=== PATIENT | female | born 1975 | race American Indian/Alaskan Native ===

== ENCOUNTER 2017-01-18 11:17 | Emergency (ER) | payer MEDICAID ==
[2017-01-18] MEDS ORDERED: Albuterol-Ipratrop 3 mg / 0.5 (3 ml) UD ONE ×2 (11:47→13:03)
[2017-01-18] MEDS ORDERED: Albuterol-Ipratrop 3 mg / 0.5 (3 ml) UD INH STA (11:48)
[2017-01-18] MEDS ORDERED: Sodium Chloride 0.9% 500 ML IV ONE ×2 (12:49→13:03)
[2017-01-18 13:07] LABS: BASO # 0.1 K/uL (0.0-0.2); BASO % 0.4 % (0.0-2.0); EOS % 0.1 % (0.0-4.0); HEMATOCRIT 42.8 % (34.0-47.0); LYMPH # 0.8 K/uL (1.0-4.3); LYMPH % 6.1 % (20.0-40.0); MEAN CELL VOLUME 92.6 fL (81.0-99.0); MEAN CORPUSCULAR HEMOGLOBIN 31.2 pg (27.0-31.0); MEAN CORPUSCULAR HGB CONC 33.7 g/dL (33.0-37.0); MEAN PLATELET VOLUME 11.9 fL (7.2-11.7); MONO # 0.4 K/uL (0.0-0.8); MONO % 3.1 % (0.0-10.0); PLATELET COUNT 224 K/uL (130-400); RED CELL DISTRIBUTION WIDTH 13.8 % (11.5-14.5); WHITE BLOOD COUNT 13.8 K/uL (4.8-10.8)
--- NOTE | 2017-01-18 13:11 | RAD ---
HISTORY: SOB, cough, rhonchi L > R COMPARISON: None available. TECHNIQUE: Chest PA and lateral FINDINGS: Examination limited by habitus. LUNGS: Mild bibasilar atelectasis or infiltrate. Please note that chest x-ray has limited sensitivity for the detection of pulmonary masses. PLEURA: No significant pleural effusion identified. No definite pneumothorax . CARDIOVASCULAR: The cardiomediastinal silhouette appears within normal limits of size. OSSEOUS STRUCTURES: No acute osseous abnormality identified. VISUALIZED UPPER ABDOMEN: Unremarkable. OTHER FINDINGS: None. IMPRESSION: Mild bibasilar atelectasis or infiltrate.
[2017-01-18] MEDS: Albuterol-Ipratrop 3 mg / 0.5 (3 ml) UD IH SCH ×2 (13:12→13:33)
[2017-01-18 13:16] LABS: ALKALINE PHOSPHATASE 69 U/L (38-126); ALT/SGPT 30 U/L (9-52); BILIRUBIN,TOTAL 0.5 mg/dL (0.2-1.3); BLOOD UREA NITROGEN 10 mg/dL (7-17); CALCIUM 8.9 mg/dl (8.6-10.4); CARBON DIOXIDE 24 mmol/L (22-30); CHLORIDE 103 mmol/L (98-107); GFR AFRICAN-AMERICAN > 60; GLUCOSE,RANDOM 133 mg/dL (65-105); POTASSIUM 3.3 mmol/L (3.6-5.2); SODIUM 137 mmol/L (132-148); TOTAL PROTEIN 8.5 g/dL (6.3-8.3)
[2017-01-18 13:24] LABS: ALB/GLOB RATIO 0.9 (1.0-2.1); AST/SGOT 14 U/L (14-36)
[2017-01-18 13:32] LABS: RBC URINE 3 /hpf (0-3); URINE BILIRUBIN NEGATIVE (NEGATIVE); URINE BLOOD 2+ (NEGATIVE); URINE COLOR Yellow (YELLOW); URINE GLUCOSE (UA) NORMAL (Normal); URINE KETONE NEGATIVE (NEGATIVE); URINE LEUKOCYTE ESTERASE NEG Leu/uL (Negative); URINE PROTEIN 3+ mg/dL (NEGATIVE); URINE UROBILINOGEN NORMAL mg/dL (0.2-1.0); WBC URINE < 1 /hpf (0-5)
[2017-01-18 13:39] LABS: NEUTROPHIL 91 % (50-75); TOTAL CELLS COUNTED 100
--- NOTE | 2017-01-18 14:09 | C.PDOC ---
History Of Present Illness 41 year old female, whose PMHx includes Asthma, presents to the ED for evaluation of shortness of breath, productive cough, and dizziness which began around 3 days ago. Patient has been using nebulizer with transient relief. Patient denies fever, chills, vomiting, diarrhea, abdominal pain. Time Seen by Provider: 01/18/17 12:14 Chief Complaint (Nursing): Shortness Of Breath History Per: Patient History/Exam Limitations: no limitations Onset/Duration Of Symptoms: Days (3) Current Symptoms Are (Timing): Still Present Quality: "Pain" Current Respiratory Medications: See Home Med List Associated Symptoms: Productive Cough. denies: Fever Recent travel outside of the [place]: No Additional History Per: Patient Past Medical History Reviewed: Historical Data, Nursing Documentation, Vital Signs Vital Signs: Last Vital Signs Temp 98.1 F 01/18/17 14:16 Pulse 84 01/18/17 14:16 Resp 18 01/18/17 14:16 BP 134/82 01/18/17 14:16 Pulse Ox 93 L 01/18/17 14:38 - Medical History PMH: Asthma, Chronic Kidney Disease Surgical History: No Surg Hx Family History: States: Unknown Family Hx - Social History Hx Alcohol Use: Yes Hx Substance Use: No - Immunization History Hx Tetanus Toxoid Vaccination: Yes Hx Influenza Vaccination: Yes Hx Pneumococcal Vaccination: No Review Of Systems Constitutional: Negative for: Fever Respiratory: Positive for: Cough, Shortness of Breath, Sputum Gastrointestinal: Negative for: Abdominal Pain Skin: Negative for: Rash Neurological: Positive for: Dizziness Physical Exam - Physical Exam Appears: Non-toxic, No Acute Distress Skin: Normal Color, Warm, Dry, No Rash Head: Atraumatic, Normacephalic Eye(s): bilateral: Normal Inspection, PERRL, EOMI Ear(s): Bilateral: Normal Oral Mucosa: Moist Throat: No Erythema, No Exudate Neck: Normal ROM, Supple Chest: Symmetrical, No Deformity, No Tenderness Cardiovascular: Rhythm Regular, No Friction Rub, No Murmur Respiratory: No Decreased Breath Sounds, No Accessory Muscle Use, No Rales, Rhonchi (left>right), No Stridor Gastrointestinal/Abdominal: Bowel Sounds (active), Soft, No Tenderness Back: Normal Inspection Extremity: Normal ROM, Capillary Refill (less than 2 seconds ), No Swelling Neurological/Psych: Oriented x3, Normal Speech, Normal Cognition, Normal Motor Gait: Steady ED Course And Treatment - Laboratory Results Result Diagrams: 01/18/17 13:01 01/18/17 13:01 O2 Sat by Pulse Oximetry: 93 Medical Decision Making Medical Decision Making: Progress: Bloodwork, Urinalysis, CXR, EKG ordered and reviewed. Duoneb INH, Solu-Medrol IVP, Zithromax PO, and IV Fluids administered. CXR shows ? infiltrate will treat for possible pneumonia. On reassessment, patient is resting comfortably, showing no signs of respiratory distress, has a peak flow of of 300 and reports an improvement in her symptoms. Patient is stable for discharge and is advised to follow up with her PMD within 1-2 days for further evaluation and/or return to the ED if symptoms return or worsen. Disposition - Disposition Referrals: [facility] at [facility] [Outside] Disposition: HOME/ ROUTINE Disposition Time: 14:11 Condition: IMPROVED Additional Instructions: Follow up with the medical doctor within 1-2 days, Return if worsened. 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 - Scribe Statement The provider has reviewed the documentation as recorded by the Scribe (Marisa Navarro) All medical record entries made by the Scribe were at my direction and personally dictated by me. I have reviewed the chart and agree that the record accurately reflects my personal performance of the history, physical exam, medical decision making, and the department course for this patient. I have also personally directed, reviewed, and agree with the discharge instructions and disposition.
[2017-01-18 14:17] VITALS: BP 134/82; PULSE 84; RESP 18; TEMP 98.1
[2017-01-18 14:21] VITALS: O2SAT 93
== END 2017-01-18 15:02 | disposition home or self-care (01) ==
LOC: C.ER 11:17
DX: J18.9 Pneumonia, unspecified organism (principal); N18.9 Chronic kidney disease, unspecified
CPT/HCPCS: 71020; 80053; 81001; 83880; 84703; 85025; 94640; 96374; 99285; J2930; J7040

== ENCOUNTER 2017-02-22 08:01 | Emergency (ER) | payer MEDICAID ==
[2017-02-22 08:04] VITALS: BMI 30.5
[2017-02-22 08:12] VITALS: RESP 18
[2017-02-22] MEDS ORDERED: Naproxen 550 mg Tab PO STA (08:24)
[2017-02-22] MEDS ORDERED: Naproxen 550 mg Tab PO ONE (08:52)
--- NOTE | 2017-02-22 09:10 | RAD ---
PROCEDURE: Right Knee Radiographs. HISTORY: right knee pain COMPARISON: None. FINDINGS: BONES: Tibial spine spurring. No fracture Unremarkable bone mineralization JOINTS: Minimal osteoarthrosis JOINT EFFUSION: Small OTHER FINDINGS: None. IMPRESSION: Suprapatellar small joint effusion. Mild osteoarthrosis. Fracture or lytic lesion.
--- NOTE | 2017-02-22 09:31 | C.PDOC ---
History Of Present Illness 41 y/o female presents to ED for evaluation of right knee pain after banging her right knee at work on a machine 2 weeks ago. Pt states that pain has worsened in the past week, and worsens with ambulation and with extension. She denies fever, chills, rash, change in sensation, calf pain, or shortness of breath. Time Seen by Provider: 02/22/17 08:05 Chief Complaint (Nursing): Lower Extremity Problem/Injury History Per: Patient History/Exam Limitations: no limitations Onset/Duration Of Symptoms: Days (2 weeks) Current Symptoms Are (Timing): Still Present Severity: Mild - Knee Description Of Injury: Struck Against Object Currently Unable To: Straighten Past Medical History Reviewed: Historical Data, Nursing Documentation, Vital Signs Vital Signs: Last Vital Signs Temp 99.2 F 02/22/17 09:51 Pulse 71 02/22/17 09:51 Resp 18 02/22/17 09:51 BP 128/65 02/22/17 09:51 Pulse Ox 96 02/22/17 10:40 - Medical History PMH: Asthma, HTN, Chronic Kidney Disease Family History: States: No Known Family Hx - Social History Hx Alcohol Use: Yes Hx Substance Use: No - Immunization History Hx Tetanus Toxoid Vaccination: Yes Hx Influenza Vaccination: Yes Hx Pneumococcal Vaccination: No Review Of Systems Except As Marked, All Systems Reviewed And Found Negative. Constitutional: Negative for: Fever, Chills Cardiovascular: Negative for: Chest Pain Respiratory: Negative for: Shortness of Breath Musculoskeletal: Positive for: Leg Pain (right knee) Skin: Negative for: Rash, Bruising Neurological: Negative for: Weakness, Numbness Physical Exam - Physical Exam Appears: Well, Non-toxic, No Acute Distress Skin: Normal Color, Warm, Dry, No Rash Eye(s): bilateral: Normal Inspection Oral Mucosa: Moist Cardiovascular: Rhythm Regular Respiratory: Normal Breath Sounds, No Rales, No Rhonchi, No Wheezing Extremity: Normal ROM (pain with extension of right knee), Tenderness (mild diffuse right knee tenderness to palpation), No Calf Tenderness, Capillary Refill (< 2 seconds all digits ), No Deformity, Swelling (mild swelling around right patella), No Other (no erythema or warmth to right knee) Extremity: Bilateral: Normal Color And Temperature Pulses: Left Dorsalis Pedis: Normal, Right Dorsalis Pedis: Normal Neurological/Psych: Oriented x3, Normal Motor, Normal Sensation Gait: Steady ED Course And Treatment O2 Sat by Pulse Oximetry: 96 (RA) Pulse Ox Interpretation: Normal - Other Rad Right knee x-ray X-Ray: Viewed By Me, Read By Radiologist Interpretation: Accession No. : [id number]. Patient Name / ID : SCAR CARBALLO / [id number]. Exam Date : 02/22/2017 08:28:20 ( Approved ). Study Comment : Sex / Age : F / 41Y. Creator : Bela Menard. Dictator : Bela Menard. Ammonia Solution Preparer : Bond Analyst : Bela Mehta. Approver2 : Report Date : 02/22/2017 09:08:52. My Comment : . PROCEDURE: Right Knee Radiographs. HISTORY: right knee pain. COMPARISON: None. FINDINGS: BONES: Tibial spine spurring. No fracture. Unremarkable bone mineralization. JOINTS: Minimal osteoarthrosis. JOINT EFFUSION: Small. OTHER FINDINGS: None. IMPRESSION: Suprapatellar small joint effusion. Mild osteoarthrosis. Fracture or lytic lesion. Progress Note: Right knee x-ray ordered and reviewed. Patient was given PO Naproxen. 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 On reassessment, patient' s pain has improved and she is ambulating normally. Patient offered crutches but refused. She was instructed to follow up with orthopedics within 1 week for further evaluation. She understands she should return to ED if symptoms worsen. Reevaluation Time: 09:45 Reassessment Condition: Improved Disposition Counseled Patient/Family Regarding: Studies Performed, Diagnosis, Need For Followup, Rx Given - Disposition Referrals: Kwadwo Verduzco III, MD [Staff Provider] - [facility] at [facility] [Outside] Disposition: HOME/ ROUTINE Disposition Time: 09:45 Condition: STABLE Additional Instructions: FOLLOW UP WITH ORTHOPEDICS WITHIN 1 WEEK USE MEDICATION NEEDED RETURN TO ER IF SYMPTOMS WORSEN Prescriptions: Naproxen 375 mg PO BID PRN #20 tablet PRN Reason: pain Instructions: Knee Sprain (ED), Osteoarthritis (ED) Forms: [facility] (Khmer), Work Excuse Print Language: HEBREW - POA Present On Arrival: None - Clinical Impression Clinical Impression: Arthritis of right knee, Joint effusion of knee - Scribe Statement The provider has reviewed the documentation as recorded by the Adolph Navarro All medical record entries made by the Adolph were at my direction and personally dictated by me. I have reviewed the chart and agree that the record accurately reflects my personal performance of the history, physical exam, medical decision making, and the department course for this patient. I have also personally directed, reviewed, and agree with the discharge instructions and disposition.
[2017-02-22 09:51] VITALS: BP 128/65; PULSE 71; TEMP 99.2
[2017-02-22 10:31] VITALS: O2SAT 96
== END 2017-02-22 09:51 | disposition home or self-care (01) ==
LOC: C.ER 08:01
DX: M17.11 Unilateral primary osteoarthritis, right knee (principal); M25.461 Effusion, right knee; I12.9 Hypertensive chronic kidney disease with stage 1 through stage 4 chronic kidney disease, or unspecified chronic kidney disease; N18.9 Chronic kidney disease, unspecified

== ENCOUNTER 2017-06-10 07:30 | Emergency (ER) | payer MEDICAID ==
[2017-06-10 07:31] VITALS: BMI 30.5
[2017-06-10 07:35] VITALS: TEMP 98.2
[2017-06-10] MEDS ORDERED: MethylPREDNISolone 40 mg Vial IVP STA (07:53)
--- NOTE | 2017-06-10 07:55 | C.PDOC ---
History Of Present Illness 41 year old female, with PMHx of asthma, presents to ED for evaluation of worsening shortness of breath over the past 2 days. Pt reports cough associated with clear phlegm. Denies leg swelling, fever, chills, chest pain, or recent travel. Time Seen by Provider: 06/10/17 07:40 Chief Complaint (Nursing): Shortness Of Breath History Per: Patient History/Exam Limitations: no limitations Onset/Duration Of Symptoms: Days (2) Current Symptoms Are (Timing): Still Present Exacerbating Factor(s): Coughing Current Respiratory Medications: See Home Med List Associated Symptoms: denies: Fever, Chills, Sweating, Chest Pain, Bloody Cough, Heart Racing, Leg/Calf Pain, Ankle/Leg Swelling Recent travel outside of the [place]: No Additional History Per: Patient Past Medical History Reviewed: Historical Data, Nursing Documentation, Vital Signs Vital Signs: Last Vital Signs Temp 98.2 F 06/10/17 07:32 Pulse 88 06/10/17 10:02 Resp 16 06/10/17 10:02 BP 128/79 06/10/17 10:02 Pulse Ox 98 06/10/17 10:02 - Medical History PMH: Asthma, HTN, Chronic Kidney Disease Family History: States: Unknown Family Hx - Social History Hx Alcohol Use: Yes Hx Substance Use: No - Immunization History Hx Tetanus Toxoid Vaccination: Yes Hx Influenza Vaccination: Yes Hx Pneumococcal Vaccination: No Review Of Systems Except As Marked, All Systems Reviewed And Found Negative. Constitutional: Negative for: Fever, Chills Cardiovascular: Negative for: Chest Pain, Edema Respiratory: Positive for: Cough, Shortness of Breath, Sputum. Negative for: Hemoptysis Physical Exam - Physical Exam Additional Physical Exam Comments: Constitutional: No acute distress. Head: Normocephalic. Atraumatic. Eyes: PERRL. ENT: Moist mucous membranes. Neck: Supple. Cardiovascular: Regular rate. Radial pulse 2+ bilaterally. Chest: No tenderness. Respiratory: Diffuse wheezing. GI: Soft. Nontender. Nondistended. Back: No CVA tenderness. Musculoskeletal: No tenderness or swelling of extremities. Skin: No rash. Neurologic: Alert, no focal deficit. ED Course And Treatment - Laboratory Results Result Diagrams: 06/10/17 08:25 06/10/17 08:25 O2 Sat by Pulse Oximetry: 97 Pulse Ox Interpretation: Normal Medical Decision Making Medical Decision Making: Plan: Blood work CXR Solu-Medrol Albuterol treatment Reassess CXR Impression: Mild left basilar atelectasis. Mild venous congestion. Patient states she feels better. Continued wheezing but improved. Feels comfortable to go home. Patient states she had been taking azithromycin at home without improvement as well. Counseled on antibiotic use. Has pulmonology follow up this week. Disposition - Disposition Disposition: HOME/ ROUTINE Disposition Time: 10:05 Condition: STABLE Prescriptions: Albuterol 0.083% [Albuterol Sulfate 3 Ml] 3 ml IH Q4 #150 neb Guaifenesin [Mucinex] 1,200 mg PO Q12H #18 ter Prednisone [Deltasone] 3 tab PO DAILY #12 tablet Instructions: Asthma in Adults Forms: [facility] (Turks [place] Islander), Work Excuse - Clinical Impression Clinical Impression: Asthma exacerbation - Scribe Statement The provider has reviewed the documentation as recorded by the Scribe Saqib Navarro All medical record entries made by the Huberibperla were at my direction and personally dictated by me. I have reviewed the chart and agree that the record accurately reflects my personal performance of the history, physical exam, medical decision making, and the department course for this patient. I have also personally directed, reviewed, and agree with the discharge instructions and disposition.
[2017-06-10] MEDS ORDERED: Albuterol-Ipratrop 3 mg / 0.5 (3 ml) UD ONE (08:11)
[2017-06-10] MEDS: Albuterol-Ipratrop 3 mg / 0.5 (3 ml) UD IH SCH ×3 (08:15→08:49)
[2017-06-10 08:31] LABS: BASO # 0.1 K/uL (0.0-0.2); BASO % 0.9 % (0.0-2.0); EOS # 1.2 K/uL (0.0-0.7); EOS % 20.9 % (0.0-4.0); HEMOGLOBIN 14.6 g/dL (11.0-16.0); LYMPH # 1.3 K/uL (1.0-4.3); MEAN CELL VOLUME 91.3 fL (81.0-99.0); MEAN CORPUSCULAR HEMOGLOBIN 32.4 pg (27.0-31.0); MEAN CORPUSCULAR HGB CONC 35.5 g/dL (33.0-37.0); MEAN PLATELET VOLUME 11.1 fL (7.2-11.7); MONO # 0.6 K/uL (0.0-0.8); MONO % 10.4 % (0.0-10.0); NEUT # 2.7 K/uL (1.8-7.0); NEUT % 45.8 % (50.0-75.0); PLATELET COUNT 235 K/uL (130-400); RBC 4.49 Mil/uL (3.80-5.20)
[2017-06-10 08:33] LABS: WHITE BLOOD COUNT 5.9 K/uL (4.8-10.8)
--- NOTE | 2017-06-10 08:34 | RAD ---
Chest x-ray two views History: Dyspnea. Comparison: 01/18/2017 Findings: Mild venous congestion. Mild left basilar atelectasis. Heart size within normal limits. Impression: Mild left basilar atelectasis. Mild venous congestion.
[2017-06-10 08:46] LABS: ALBUMIN 3.9 g/dL (3.5-5.0); ALT/SGPT 21 U/L (9-52); AST/SGOT 18 U/L (14-36); BLOOD UREA NITROGEN 9 mg/dL (7-17); CALCIUM 8.8 mg/dl (8.6-10.4); GFR AFRICAN-AMERICAN > 60; GFR NON-AFRICAN AMERICAN > 60
[2017-06-10 08:49] LABS: EOSINOPHIL 22 % (0-4); LYMPHOCYTE 22 % (20-40); MONOCYTE 11 % (0-10); NEUTROPHIL 45 % (50-75); PLATELET ESTIMATE NORMAL (NORMAL); TOTAL CELLS COUNTED 100
[2017-06-10 08:50] LABS: ANISOCYTOSIS SLIGHT; LARGE PLATELETS PRESENT
[2017-06-10 10:02] VITALS: BP 128/79; PULSE 88; RESP 16
[2017-06-10 10:06] VITALS: O2SAT 97
== END 2017-06-10 10:12 | disposition home or self-care (01) ==
LOC: C.ER 07:30
DX: J45.901 Unspecified asthma with (acute) exacerbation (principal); I10 Essential (primary) hypertension
CPT/HCPCS: 71046; 80053; 85025; 94150; 94640; 96374; 99285; J2920

== ENCOUNTER 2018-03-08 08:54 | Emergency (ER) | payer MEDICAID ==
[2018-03-08 08:55] VITALS: BMI 30.5
[2018-03-08 09:09] VITALS: RESP 18
--- NOTE | 2018-03-08 09:12 | C.PDOC ---
History Of Present Illness Patient is a 42 year old female, with PMHx of asthma and HLD, who presents to the ED for evaluation of lightheadedness and body aches that have been present for the past 2 days. Patient notes associated SOB and coughing and has been tolerating PO intake. She denies any associated fever, chills, chest pain, abdominal pain, nausea, vomiting, diarrhea or constipation. Of note, patient denies receiving the flu shot this year.NKDA PCP (Dr. Mederos) Time Seen by Provider: 03/08/18 09:11 Chief Complaint (Nursing): Dizziness/Lightheaded History Per: Patient History/Exam Limitations: no limitations Onset/Duration Of Symptoms: Days (3 days ) Current Symptoms Are (Timing): Still Present Fall Associated With With Symptoms: No Recent travel outside of the [place]: No Additional History Per: Patient Past Medical History Reviewed: Historical Data, Nursing Documentation, Vital Signs Vital Signs: Last Vital Signs Temp 98.7 F 03/08/18 09:06 Pulse 78 03/08/18 09:06 Resp 18 03/08/18 09:06 BP 148/84 03/08/18 09:06 Pulse Ox 100 03/08/18 09:06 - Medical History PMH: Asthma, HTN, Chronic Kidney Disease Surgical History: No Surg Hx Family History: States: Unknown Family Hx - Social History Hx Alcohol Use: Yes Hx Substance Use: No - Immunization History Hx Tetanus Toxoid Vaccination: No Hx Influenza Vaccination: No Hx Pneumococcal Vaccination: No Review Of Systems Except As Marked, All Systems Reviewed And Found Negative. Constitutional: Positive for: Other (Body aches ). Negative for: Fever, Chills Cardiovascular: Positive for: Light Headedness. Negative for: Chest Pain Respiratory: Positive for: Cough, Shortness of Breath Gastrointestinal: Negative for: Nausea, Vomiting, Abdominal Pain, Diarrhea, Constipation Neurological: Positive for: Headache. Negative for: Dizziness Physical Exam - Physical Exam Appears: Non-toxic, No Acute Distress Skin: Warm, Dry Head: Atraumatic, Normacephalic Eye(s): bilateral: Normal Inspection, PERRL, EOMI Oral Mucosa: Moist Neck: Normal ROM, Supple, No Other (nuchal rigidity ) Chest: Symmetrical Cardiovascular: Rhythm Regular Respiratory: Normal Breath Sounds, No Rales, No Rhonchi, No Wheezing Gastrointestinal/Abdominal: Soft, No Tenderness, No Distention Back: Normal Inspection, No CVA Tenderness, No Vertebral Tenderness, No Decreased ROM Extremity: Normal ROM Neurological/Psych: Oriented x3, Normal Speech, Normal Cognition, Normal Cranial Nerves, No Cerebellar Signs, Normal Motor, Normal Sensation, Normal Reflexes, No Expressive Aphasia, No Receptive Aphasia, No Dysarthria, Other (No meningeal sign's- negative kernig's and brudzinski's) Gait: Steady Extremity: Right: No Drift, Left: No Drift ED Course And Treatment - Laboratory Results Result Diagrams: 03/08/18 09:47 03/08/18 09:47 O2 Sat by Pulse Oximetry: 100 (on RA ) Pulse Ox Interpretation: Normal Medical Decision Making Medical Decision Making: Patient is a 42 year old female, with PMHx of asthma and HLD, presents to the ED for evaluation of lightheadedness and body aches for past two days with associated SOB and cough. On exam, well appearing in NAD, Low prestes well, PERC out. No urinary complaints or abd pain. Normal neuro exam. Lightheadedness and body aches likely 2/2 viral syndrome, will seek imaging and labs. Plan: * Bloodwork * CXR * Flu Swab * Tylenol 650 mg PO * IV Fluids 1025 Serology reviewed. Negative for influenza. Labs reviewed WNML 1100 CXR Findings: FINDINGS: LUNGS: No active pulmonary disease. PLEURA: No significant pleural effusion identified. No pneumothorax apparent. CARDIOVASCULAR: No aortic atherosclerotic calcification present. Normal cardiac size. No pulmonary vascular congestion. OSSEOUS STRUCTURES: No significant abnormalities. VISUALIZED UPPER ABDOMEN: Normal. OTHER FINDINGS: None. IMPRESSION: No active disease. 1115 labs, xr largely unremarkble shared results w/ pt inclding tsh L and need for f/u pt notes improvement of symptoms clear for d/c home with f/u and return indications Disposition - Disposition Disposition: HOME/ ROUTINE Disposition Time: 11:14 Condition: GOOD Forms: [facility] (Guinean) - Clinical Impression Clinical Impression: Flu-like symptoms, Lightheaded, Dizziness - Scribe Statement The provider has reviewed the documentation as recorded by the Huberibperla Conner All medical record entries made by the Scribe were at my direction and personally dictated by me. I have reviewed the chart and agree that the record accurately reflects my personal performance of the history, physical exam, medical decision making, and the department course for this patient. I have also personally directed, reviewed, and agree with the discharge instructions and disposition.
[2018-03-08] MEDS ORDERED: Sodium Chloride 0.9% 1,000 ML IV ONE (09:38)
[2018-03-08 09:50] LABS: BASO % 1.2 % (0.0-2.0); EOS # 0.3 K/uL (0.0-0.7); EOS % 7.1 % (0.0-4.0); LYMPH # 1.2 K/uL (1.0-4.3); LYMPH % 30.1 % (20.0-40.0); MEAN CELL VOLUME 92.3 fL (81.0-99.0); MEAN CORPUSCULAR HEMOGLOBIN 31.5 pg (27.0-31.0); MEAN CORPUSCULAR HGB CONC 34.1 g/dL (33.0-37.0); MEAN PLATELET VOLUME 10.9 fL (7.2-11.7); MONO # 0.5 K/uL (0.0-0.8); MONO % 12.9 % (0.0-10.0); NEUT # 1.9 K/uL (1.8-7.0); NEUT % 48.7 % (50.0-75.0); RBC 4.76 Mil/uL (3.80-5.20); RED CELL DISTRIBUTION WIDTH 13.7 % (11.5-14.5); WHITE BLOOD COUNT 3.9 K/uL (4.8-10.8)
[2018-03-08] MEDS ORDERED: Sodium Chloride 0.9% 1,000 ML ONE (09:58)
[2018-03-08 10:06] LABS: ALB/GLOB RATIO 1.2 (1.0-2.1); ALBUMIN 4.8 g/dL (3.5-5.0); ALT/SGPT 28 U/L (9-52); AST/SGOT 50 U/L (14-36); BLOOD UREA NITROGEN 11 mg/dL (7-17); CALCIUM 9.2 mg/dl (8.6-10.4); GFR NON-AFRICAN AMERICAN > 60
--- NOTE | 2018-03-08 10:37 | RAD ---
Date of service: 03/08/2018 HISTORY: lightheaded COMPARISON: 06/10/2017 TECHNIQUE: Chest PA and lateral FINDINGS: LUNGS: No active pulmonary disease. PLEURA: No significant pleural effusion identified. No pneumothorax apparent. CARDIOVASCULAR: No aortic atherosclerotic calcification present. Normal cardiac size. No pulmonary vascular congestion. OSSEOUS STRUCTURES: No significant abnormalities. VISUALIZED UPPER ABDOMEN: Normal. OTHER FINDINGS: None. IMPRESSION: No active disease.
[2018-03-08 11:05] VITALS: BP 112/76; PULSE 64; TEMP 97.9
[2018-03-08 11:15] VITALS: O2SAT 100
== END 2018-03-08 11:34 | disposition home or self-care (01) ==
LOC: C.ER 08:54
DX: J11.1 Influenza due to unidentified influenza virus with other respiratory manifestations (principal); R42 Dizziness and giddiness; E78.5 Hyperlipidemia, unspecified; I12.9 Hypertensive chronic kidney disease with stage 1 through stage 4 chronic kidney disease, or unspecified chronic kidney disease; N18.9 Chronic kidney disease, unspecified
CPT/HCPCS: 71046; 80053; 82550; 83735; 84443; 84484; 85025; 87804; 99285; J7030